=== PATIENT | male | born 1970 | race Caucasian/White ===

== ENCOUNTER 2022-06-17 11:22 | Emergency (ER) | payer OTHER ==
[~2022-06-17] VITALS: Ht 175.3 cm; Wt 90.9 kg
[2022-06-17 11:25] VITALS: BP 154/81
[2022-06-17] MEDS ORDERED: IBUP-1554 PO (13:13)
== END 2022-06-17 13:38 | disposition home or self-care (01) ==
LOC: EMS 11:22
DX: S86.811A Strain of other muscle(s) and tendon(s) at lower leg level, right leg, initial encounter (principal); X58.XXXA Exposure to other specified factors, initial encounter; Y93.66 Activity, soccer; Y92.89 Other specified places as the place of occurrence of the external cause; Y99.8 Other external cause status
CPT/HCPCS: 99282; Z7502